=== PATIENT | female | born 1975 ===

== ENCOUNTER 2020-01-12 05:57 | Day surgery (SDC) | payer OTHER ==
[2020-01-12] MEDS ORDERED: CARAFATE1 GM/10 ML PO (08:46)
[2020-01-12] MEDS ORDERED: NEXIUM 24HR20 MG PO (08:46)
== END 2020-01-12 10:00 | disposition home or self-care (01) ==
LOC: AMB-ENDOS 05:57 → ADM 09:45 → AMB-ENDOS 10:00
PROVIDERS: ATTEND Surgery
DX: D13.1 Benign neoplasm of stomach (principal); K21.9 Gastro-esophageal reflux disease without esophagitis; K44.9 Diaphragmatic hernia without obstruction or gangrene; Z20.828 Contact with and (suspected) exposure to other viral communicable diseases